=== PATIENT | male | born 1985 | race Caucasian/White ===

== ENCOUNTER 2018-05-10 13:22 | Emergency (ER) | payer SELFPAY ==
--- NOTE | 2018-05-10 14:21 | RAD REPORT ---
EXAM DESCRIPTION: CT - Head Brain Wo Cont - 05/10/2018 1:56 pm CLINICAL HISTORY: Transient alteration of awareness, left-sided facial numbness COMPARISON: None. TECHNIQUE: Axial 5 mm thick images of the head were obtained without IV contrast. All CT scans are performed using dose optimization technique as appropriate and may include automated exposure control or mA/KV adjustment according to patient size. FINDINGS: No intracranial hemorrhage, mass, edema or shift of mid-line structures. No acute infarcti on changes seen. No abnormal extra-axial fluid collections. Ventricles are normal. Mastoid air cells and visualized portions of the paranasal sinuses are clear of acute finding. No acute bony findings. IMPRESSION: Negative non-contrast CT head examination.
--- NOTE | 2018-05-10 14:21 | RAD REPORT ---
EXAM DESCRIPTION: RAD - Chest Single View - 05/10/2018 2:01 pm CLINICAL HISTORY: Cough, body aches COMPARISON: None. TECHNIQUE: AP portable chest image was obtained 1349 hours . FINDINGS: Lungs are clear. Heart and vasculature are normal. No measurable pleural effusion and no p neumothorax. No acute bony abnormality seen. No acute aortic findings suspected. IMPRESSION: No acute cardiopulmonary process.
[2018-05-10 14:50] LABS: Absolute Monocytes 0.4 K/uL (0.1-1.3); Absolute Neutrophil 9.4 K/uL (1.8-8.0); Basophils % 0.2 % (0-1.3); Eosinophils % 0.1 % (0-4.4); Hematocrit 40.7 % (39.6-49.0); Lymphocytes % 9.3 % (15.3-44.8); MCH 33.3 pg (27.0-35.0); MCV 95.2 fL (80-100); MPV 7.9 fL (7.6-11.3); Monocytes % 3.6 % (3.3-12.3); RBC Red Blood Cell Count 4.27 M/uL (4.33-5.43)
[2018-05-10 14:52] LABS: Protime INR 0.89
[2018-05-10 14:55] LABS: ALT/SGPT 49 U/L (12-78); AST/SGOT 16 U/L (15-37); Albumin 3.6 g/dL (3.4-5.0); Alkaline Phosphatase 158 U/L (45-117); BUN Blood Urea Nitrogen 12 mg/dL (7-18); Bicarbonate 24 mmol/L (21-32); Bilirubin Direct < 0.1 mg/dL (0-0.2); Bilirubin Total 0.1 mg/dL (0.2-1.0); Glucose Level 160 mg/dL (74-106); Magnesium 2.1 mg/dL (1.8-2.4); NT PRO-BNP 17 pg/mL (<125); Potassium 4.3 mmol/L (3.5-5.1); Protein, Total 7.3 g/dL (6.4-8.2); Sodium Level 138 mmol/L (136-145); Troponin (Emerg Dept Use Only) < 0.02 ng/mL (0.0-0.045)
[2018-05-10 15:15] LABS: Blood Morphology Comment NOT SEEN (NOT SEEN); Platelet Estimate ADEQ; Urine White Blood Cell Casts OK
[2018-05-10] MEDS ORDERED: NA CHLORIDE 0.9% 1,000 ML ONE (15:27)
--- NOTE | 2018-05-10 16:31 | ER ---
Nurse's Notes [facility] Name: Curt Trejo Age: 32 yrs Sex: Male : 1985 Arrival Date: 05/10/2018 Time: 13:24 Bed 25 Private MD: Raúl Tse H Diagnosis: Weakness;Malaise and fatigue;Acute sinusitis Presentation: 05/10 13:32 Presenting complaint: Intermittent confusion, weakness, left sided facial numbness, hb headache, body aches, and cough x 2 weeks. Transition of care: patient was not received from another setting of care. 13:32 Method Of Arrival: Ambulatory hb 13:34 Onset of symptoms was April 30, 2018. Risk Assessment: Do you want to hurt yourself hb or someone else? Patient reports no desire to harm self or others. Care prior to arrival: None. 13:34 Acuity: JAGJIT 3 hb 16:46 Initial Sepsis Screen: Does the patient meet any 2 criteria? No. Patient's initial tl3 sepsis screen is negative. Does the patient have a suspected source of infection? No. Patient's initial sepsis screen is negative. Triage Assessment: 16:46 Pain: Denies pain. tl3 Historical: - Allergies: 13:34 Sulfa (Sulfonamide Antibiotics); hb - Home Meds: 13:34 Xanax 1 mg Oral tab 1 tab daily [Active]; hb - PMHx: 13:34 Anxiety; hb - PSHx: 13:34 None; hb - Immunization history:: Adult Immunizations up to date. - Social history:: Smoking status: Patient/guardian denies using tobacco. - Ebola Screening: : No symptoms or risks identified at this time. Screenin:34 Abuse screen: Denies threats or abuse. Denies injuries from another. Nutritional hb screening: No deficits noted. Tuberculosis screening: No symptoms or risk factors identified. Fall Risk None identified. Assessment: 13:55 General: Appears uncomfortable, ill, well groomed, well developed, well nourished, tl3 Behavior is cooperative, appropriate for age. Neuro: Level of Consciousness is awake, alert, obeys commands, Oriented to person, place, time, situation, Appropriate for age Ux Consultant are equal bilaterally Speech is normal, Facial symmetry appears normal. Neuro: Reports weakness since two weeks. Cardiovascular: Heart tones S1 S2 present Patient's skin is warm and dry. Respiratory: Airway is patent Respiratory effort is even, unlabored, Respiratory pattern is regular, symmetrical, Breath sounds are clear bilaterally. GI: No deficits noted. No signs and/or symptoms were reported involving the gastrointestinal system. : No deficits noted. No signs and/or symptoms were reported regarding the genitourinary system. 15:51 Reassessment: No changes from previously documented assessment. Patient and/or family tl3 updated on plan of care and expected duration. Pain level reassessed. Patient is alert, oriented x 3, equal unlabored respirations, skin warm/dry/pink. pt continues to sleep, arouses easily but falls right back to sleep. 16:19 Reassessment: Scotty at bedside discussing POC. tl3 Vital Signs: 13:33 BP 163 / 95; Pulse 91; Resp 16; Temp 97.9; Pulse Ox 99% on R/A; Pain 3/10; hb 15:00 BP 125 / 61; Pulse 83; Resp 17; Pulse Ox 99% on R/A; mg2 15:51 BP 124 / 69; Pulse 78; Resp 18; Pulse Ox 96% on R/A; tl3 ED Course: 13:24 Patient arrived in ED. mr 13:24 Raúl Tse DO is Private Physician. mr 13:27 [facility] jr8 13:27 Teo Goldstein MD is Attending Physician. jr8 13:27 Sofia Grady, YASMIN is Primary Nurse. tl3 13:34 Triage completed. hb 13:34 Arm band placed on right wrist. hb 13:55 Patient has correct armband on for positive identification. Placed in gown. Bed in low tl3 position. Call light in reach. Side rails up X2. groundwater monitoring technician on. Pulse ox on. NIBP on. Warm blanket given. 13:55 No provider procedures requiring assistance completed. Initial lab(s) drawn, by me, tl3 sent to lab. X-ray(s) taken. Inserted saline lock: 20 gauge in left forearm, using aseptic technique. Blood collected. 13:56 CT Head Brain wo Cont In Process Unspecified. EDMS 13:56 CT completed. Patient moved to CT via stretcher. Patient moved back from CT. cw1 14:02 XRAY Chest (1 view) In Process Unspecified. EDMS 16:30 Edwin Cedeno MD is Referral Physician. jr8 16:45 IV discontinued, intact, bleeding controlled, No redness/swelling at site. Pressure tl3 dressing applied. Administered Medications: 15:20 Drug: NS 0.9% 1000 ml Route: IV; Rate: 1000 ml; Site: left forearm; tl3 16:47 Follow up: IV Status: Completed infusion; IV Intake: 1000ml tl3 Intake: 16:47 IV: 1000ml; Total: 1000ml. tl3 Outcome: 16:31 Discharge ordered by MD. jr8 16:45 Discharged to home ambulatory. tl3 16:45 Condition: stable 16:45 Discharge instructions given to patient, family, Instructed on discharge instructions, follow up and referral plans. Demonstrated understanding of instructions, follow-up care, medications, Prescriptions given X 1. 16:46 Patient left the ED. tl3 Signatures: Dispatcher [employer] EDTN Rema ChewSabiha cw1 Scotty Youngblood, TABATHA PA jr8 Rosamaria Wasserman, YASMIN HOFFMAN Sofia Grady RN RN tl3 Demarcus Walton, YASMIN RN mg2
--- NOTE | 2018-05-10 16:32 | EDPHYS ---
Physician Documentation [facility] Name: Curt Trejo Age: 32 yrs Sex: Male : 1985 Arrival Date: 05/10/2018 Time: 13:24 Bed 25 Private MD: Raúl Tse H ED Physician Teo Goldstein HPI: 05/10 16:22 This 32 yrs old Male presents to ER via Ambulatory with complaints of Slurred jr8 Speech, Confusion, Cough. 16:22 Patient stated for the past two weeks has had numbness to entire face and on/off jr8 slurred speech. Stated that he goes through episodes of complete exhaustion and cannot stay awake. describes it as delerious episodes. A week ago started to have sinus congestion and cough as well. Was started on prednisone without relief. Denies drug use. No other medications or medical problems per patient or family . Historical: - Allergies: 13:34 Sulfa (Sulfonamide Antibiotics); hb - Home Meds: 13:34 Xanax 1 mg Oral tab 1 tab daily [Active]; hb - PMHx: 13:34 Anxiety; hb - PSHx: 13:34 None; hb - Immunization history:: Adult Immunizations up to date. - Social history:: Smoking status: Patient/guardian denies using tobacco. - Ebola Screening: : No symptoms or risks identified at this time. ROS: 16:22 Eyes: Negative for injury, pain, redness, and discharge, Neck: Negative for injury, jr8 pain, and swelling, Cardiovascular: Negative for chest pain, palpitations, and edema, Abdomen/GI: Negative for abdominal pain, nausea, vomiting, diarrhea, and constipation, Back: Negative for injury and pain, MS/Extremity: Negative for injury and deformity, Skin: Negative for injury, rash, and discoloration. 16:22 ENT: Positive for rhinorrhea, sinus congestion, Negative for drainage from ear(s), ear pain, sore throat, difficulty swallowing, difficulty handling secretions. 16:22 Respiratory: Positive for cough, Negative for shortness of breath, sputum production, wheezing. 16:22 Neuro: Positive for altered mental status, numbness, speech changes. Exam: 16:22 Head/Face: Normocephalic, atraumatic. Eyes: Pupils equal round and reactive to light, jr8 extra-ocular motions intact. Lids and lashes normal. Conjunctiva and sclera are non-icteric and not injected. Cornea within normal limits. Periorbital areas with no swelling, redness, or edema. ENT: Nares patent. No nasal discharge, no septal abnormalities noted. Tympanic membranes are normal and external auditory canals are clear. Oropharynx with no redness, swelling, or masses, exudates, or evidence of obstruction, uvula midline. Mucous membranes moist. Neck: Trachea midline, no thyromegaly or masses palpated, and no cervical lymphadenopathy. Supple, full range of motion without nuchal rigidity, or vertebral point tenderness. No Meningismus. Cardiovascular: Regular rate and rhythm with a normal S1 and S2. No gallops, murmurs, or rubs. Normal PMI, no JVD. No pulse deficits. Respiratory: Lungs have equal breath sounds bilaterally, clear to auscultation and percussion. No rales, rhonchi or wheezes noted. No increased work of breathing, no retractions or nasal flaring. Abdomen/GI: Soft, non-tender, with normal bowel sounds. No distension or tympany. No guarding or rebound. No evidence of tenderness throughout. Back: No spinal tenderness. No costovertebral tenderness. Full range of motion. Skin: Warm, dry with normal turgor. Normal color with no rashes, no lesions, and no evidence of cellulitis. MS/ Extremity: Pulses equal, no cyanosis. Neurovascular intact. Full, normal range of motion. 16:22 Neuro: Orientation: to person, place, time \T\ situation. Mentation: is normal, Memory: is normal, immediate memory is intact, recent memory is intact, remote memory is intact, Cranial nerves: CN I not tested, CN II- XII are normal as tested, visual [place] are intact. extraocular movements are intact, Facial palsy and sensory deficits are absent. Nystagmus is absent. Speech is clear and appropriate. Tongue strength is normal, Cerebellar function: normal finger to nose testing, heel to moise testing is normal, Motor: moves all fours, strength is 5/5 in all extremities, Sensation: no obvious gross deficits, Gait: not tested. Deep tendon reflexes are normal. Vital Signs: 13:33 BP 163 / 95; Pulse 91; Resp 16; Temp 97.9; Pulse Ox 99% on R/A; Pain 3/10; hb 15:00 BP 125 / 61; Pulse 83; Resp 17; Pulse Ox 99% on R/A; mg2 15:51 BP 124 / 69; Pulse 78; Resp 18; Pulse Ox 96% on R/A; tl3 MDM: 13:27 Patient medically screened. [facility] 16:22 Data reviewed: vital signs, nurses notes, lab test result(s), EKG, radiologic studies, [facility] CT scan, plain films. Data interpreted: Pulse oximetry: on room air is 96 %. Interpretation: normal. Counseling: I had a detailed discussion with the patient and/or guardian regarding: the historical points, exam findings, and any diagnostic results supporting the discharge/admit diagnosis, lab results, radiology results, the need for outpatient follow up, a family practitioner, a neurologist, to return to the emergency department if symptoms worsen or persist or if there are any questions or concerns that arise at home. ED course: Patient feeling better after fluids. No neurologic deficits noted on exam. CT and other labs and images without acute or concerning finding. Discussed this with patient and family. Will need to f/u with neurology. If worse to come back. Family and patient good with this plan . 05/10 13:40 Order name: Basic Metabolic Panel; Complete Time: 15:05/10 13:40 Order name: CBC with Diff; Complete Time: 15:18 05/10 13:40 Order name: LFT's; Complete Time: 15:05/10 13:40 Order name: Magnesium; Complete Time: 15:05/10 13:40 Order name: NT PRO-BNP; Complete Time: 15:05/10 13:40 Order name: PT-INR; Complete Time: 15:05/10 13:40 Order name: Troponin (emerg Dept Use Only); Complete Time: 15:05/10 13:40 Order name: XRAY Chest (1 view); Complete Time: 15: 05/10 13:40 Order name: Influenza Screen (a \T\ B); Complete Time: 15:05/10 13:40 Order name: Collier Screen Profile; Complete Time: 15:05/10 13:40 Order name: CT Head Brain wo Cont; Complete Time: 15:/11 13:46 Order name: UDS; Complete Time: 18:01 [facility] 05/10 14:56 Order name: CBC Smear Scan; Complete Time: 15:18 [facility] 05/10 13:40 Order name: EKG; Complete Time: 13:41 [facility] 05/10 13:40 Order name: Cardiac monitoring; Complete Time: 14:29 [facility] 05/10 13:40 Order name: EKG - Nurse/Tech; Complete Time: 14:29 [facility] 05/10 13:40 Order name: IV Saline Lock; Complete Time: 14:29 [facility] 05/10 13:40 Order name: Labs collected and sent; Complete Time: 14:30 [facility] 05/10 13:40 Order name: O2 Per Protocol; Complete Time: 14:30 [facility] 05/10 13:40 Order name: O2 Sat Monitoring; Complete Time: 14:30 [facility] 05/10 14:07 Order name: Labs - recollect needed; Complete Time: 14:29 bd Administered Medications: 15:20 Drug: NS 0.9% 1000 ml Route: IV; Rate: 1000 ml; Site: left forearm; tl3 16:47 Follow up: IV Status: Completed infusion; IV Intake: 1000ml tl3 Disposition: 05/10/18 16:31 Discharged to Home. Impression: Weakness, Malaise and fatigue, Acute sinusitis. - Condition is Stable. - Discharge Instructions: Sinusitis, Adult, Weakness, Fatigue. - Prescriptions for Zithromax Z- Melecio 250 mg Oral Tablet - take 1 tablet by ORAL route as directed for 5 days Day 1 - take two (2) tablets one time. Day 2, 3, 4 , 5 take one (1) tablet once daily.; 6 tablet. - Medication Reconciliation Form, Thank You Letter, Antibiotic Education, Prescription Opioid Use form. - Follow up: Edwin Cedeno MD; When: 2 - 3 days; Reason: Recheck today's complaints, Continuance of care, Re-evaluation by your physician. - Problem is new. - Symptoms have improved. Signatures: Dispatcher [employer] EDSD Danika Canela Josh, PA PA jr8 Rosamaria Wasserman RN RN hb Lowrey, Tammy, RN RN tl3 Corrections: (The following items were deleted from the chart) 16:46 16:31 05/10/2018 16:31 Discharged to Home. Impression: Weakness; Malaise and fatigue; tl3 Acute sinusitis. Condition is Stable. Forms are Medication Reconciliation Form, Thank You Letter, Antibiotic Education, Prescription Opioid Use. Follow up: Edwin Cedeno; When: 2 - 3 days; Reason: Recheck today's complaints, Continuance of care, Re-evaluation by your physician. Problem is new. Symptoms have improved. jr8
[2018-05-10 16:44] LABS: Barbiturates NEGATIVE (NEGATIVE); Benzodiazepines POSITIVE (NEGATIVE); Cocaine NEGATIVE (NEGATIVE); METHAMPHETAM NEGATIVE (NEGATIVE); Methadone NEGATIVE (NEGATIVE); Opiates NEGATIVE (NEGATIVE); Phencyclidine NEGATIVE (NEGATIVE); THC Cannibis NEGATIVE (NEGATIVE)
[2018-05-10 21:25] LABS: Urine Blood NEGATIVE (NEG); Urine Glucose NEGATIVE (NEG); Urine Protein NEGATIVE (NEG); Urine Specific Gravity 1.015 (1.005-1.030)
--- NOTE | 2018-05-11 07:04 | EKG ---
Test Date: 2018-05-10 Test Time: 14:35:46 Floating Operator: TL MEASUREMENT RESULTS: Intervals: Rate: 73 MD: 144 QRSD: 90 QT: 356 QTc: 392 [place]: P: 38 MD: 144 QRS: 46 T: 33 INTERPRETIVE STATEMENTS: Normal sinus rhythm Normal ECG No previous ECG available for comparison Electronically Signed On 05-11-18 07:02:37 ENERGY ADVISOR by Pa Laws
== END 2018-05-10 16:46 | disposition home or self-care (01) ==
LOC: ER 13:22
DX: J01.90 Acute sinusitis, unspecified (principal); R53.81 Other malaise; R53.83 Other fatigue; F41.9 Anxiety disorder, unspecified; Z88.2 Allergy status to sulfonamides
CPT/HCPCS: 36415; 70450; 71045; 80048; 80076; 80307; 81003; 82962; 83735; 83880; 84484; 85025; 85610; 86308; 87804; 93005; 96360; 99285; J7030

== ENCOUNTER 2018-05-30 20:51 | Emergency (ER) | payer SELFPAY ==
[2018-05-30] MEDS ORDERED: MORPHINE 4 MG/ML SYR ONE (21:17)
[2018-05-30] MEDS ORDERED: ONDANSETRON 4 MG/2 ML VIAL ONE (21:17)
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
[2018-05-30] MEDS ORDERED: KETOROLAC 30 MG/ML INJ ONE (22:31)
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
== END 2018-05-31 00:08 | disposition home or self-care (01) ==
LOC: ER 20:51
DX: S00.90XA Unspecified superficial injury of unspecified part of head, initial encounter (principal); V86.59XA Driver of other special all-terrain or other off-road motor vehicle injured in nontraffic accident, initial encounter; Z88.2 Allergy status to sulfonamides; F41.9 Anxiety disorder, unspecified; F17.210 Nicotine dependence, cigarettes, uncomplicated
CPT/HCPCS: 70450; 71045; 72125; 72170; 96374; 96375; 99285; J2405